=== PATIENT | female | born 1965 | race Hispanic/Latino ===

== ENCOUNTER 2017-06-06 09:23 | Day surgery (SDC) | payer BC, SELFPAY ==
[~2017-06-06] VITALS: Ht 154.9 cm; Wt 55.3 kg
[~2017-06-06 09:23] MED LIST: ESTR1PAT87 TD; PROG100C6 PO; SODIUM CHLORIDE 0.9% 1000ML 1,000 ML IV ONE; VENL37.587 PO
[2017-06-06 09:37] VITALS: BP 102/61
[2017-06-06] MEDS ORDERED: MEPERIDINE-PF 50 MG/ML SYG ONE ×2 (10:32→10:48)
[2017-06-06] MEDS ORDERED: MIDAZOLAM HCL 1 MG/ML 2ML VIAL ONE ×2 (10:32→10:48)
[2017-06-06 11:10] VITALS: BP 83/52
== END 2017-06-06 14:10 ==
LOC: DAH 09:23
PROVIDERS: ATTEND Internal Medicine Gastroenterology
DX: Z12.11 Encounter for screening for malignant neoplasm of colon (principal); K21.9 Gastro-esophageal reflux disease without esophagitis; Z98.890 Other specified postprocedural states; Z85.41 Personal history of malignant neoplasm of cervix uteri; Z98.51 Tubal ligation status; Z79.899 Other long term (current) drug therapy; Q43.8 Other specified congenital malformations of intestine
CPT/HCPCS: 45378; A4606; J2175 ×2; J2250 ×2; J7030